=== PATIENT | male | born 1980 | race Caucasian/White ===

== ENCOUNTER 2017-11-10 01:10 | Emergency (ER) | payer BC ==
[2017-11-10] MEDS ORDERED: Ondansetron HCl/PF 4 MG/2 ML Vial ONE (01:28)
[2017-11-10] MEDS ORDERED: Pantoprazole 40 MG VIAL ONE (01:33)
[2017-11-10 01:49] LABS: #Basophils 0.1 thou/uL (0.0-0.2); #Eosinphils 0.1 thou/uL (0.0-0.7); #Lymphocytes 0.7 thou/uL (1.20-3.40); #Monocytes 0.5 thou/uL (0.11-0.59); #Neutrophils 9.1 thou/uL (1.40-6.50); %Basophils 0.5 % (0.0-1.0); %Eosinophils 1.4 % (0.0-10.0); %Lymphocytes 6.3 % (21.0-51.0); %Monocytes 4.7 % (0.0-10.0); %Neutrophils 87.1 % (42.0-75.0); Hemoglobin 15.6 g/dL (14.0-18.0); Mean Corpuscular HGB CONC 34.5 g/dL (32.0-36.0); Mean Corpuscular Hemoglobin 28.1 pg (27.0-31.0); Mean Corpuscular Volume 81.3 fl (80.0-94.0); Mean Platelet Volume 7.1 fL (7.4-10.4); Platelet Count 226 thou/uL (130-400); RBC Distribution Width 11.8 % (11.5-14.5); Red Blood Cell (RBC) Count 5.57 mill/uL (4.70-6.10); White Blood Cell (WBC) Count 10.4 thou/uL (4.8-10.8)
[2017-11-10 01:56] LABS: ALT (SGPT) 42 U/L (8-55); AST (SGOT) 22 U/L (5-34); Albumin 4.6 g/dL (3.5-5.0); Alkaline Phosphatase 85 U/L (40-150); Anion Gap 19 mmol/L (10-20); BUN (Urea Nitrogen) 21 mg/dL (8.9-20.6); Bilirubin, Total 1.1 mg/dL (0.2-1.2); Calc. Creatinine Clearance 0 mL/min (70-130); Calcium 9.7 mg/dL (7.8-10.44); Carbon Dioxide 21 mmol/L (22-29); Chloride 103 mmol/L (98-107); Estimated GFR-MDRD 72; Globulin 3.4 g/dL (2.4-3.5); Glucose 132 mg/dL (70-105); Lipase 19 U/L (8-78); Potassium 4.7 mmol/L (3.5-5.1); Sodium 138 mmol/L (136-145)
== END 2017-11-10 03:28 | disposition home or self-care (01) ==
LOC: SCSER 01:10
DX: K52.9 Noninfective gastroenteritis and colitis, unspecified (principal); H61.22 Impacted cerumen, left ear; E03.9 Hypothyroidism, unspecified; J45.909 Unspecified asthma, uncomplicated; Z79.899 Other long term (current) drug therapy
CPT/HCPCS: 80053; 83690; 85025; 96361; 96374; 96375; C9113; J2405

== ENCOUNTER 2020-08-10 06:42 | Inpatient (IN) | payer OTHER ==
[2020-08-10] MEDS ORDERED: Fentanyl 100 MCG/2 ML VIAL ONE ×2 (07:34→11:06)
[2020-08-10] MEDS ORDERED: Midazolam HCl 2 mg/2 ml Vial ONE (07:34)
[2020-08-10] MEDS ORDERED: VANCOMYCIN 2 GRAM/400 ML BAG 2 GM in Premix Bag 1 BAG IVPB SCH (08:00)
[2020-08-10] MEDS ORDERED: CEFAZOLIN 2 GM in Premix Bag 1 BAG IVPB SCH (08:00)
[2020-08-10] MEDS ORDERED: Tranexamic Acid 1,000 MG/10 ML VIAL ONE (08:02)
[2020-08-10] MEDS ORDERED: Sodium Chloride 0.9% 100 ML ONE (08:16)
[2020-08-10] MEDS ORDERED: Promethazine HCl 25 MG SUPP PR PRN (08:30)
[2020-08-10] MEDS ORDERED: diphenhydrAMINE 50 MG/ML VIAL IM PRN (08:30)
[2020-08-10] MEDS ORDERED: traMADol HCl 50 MG TAB PO PRN ×3 (08:30→08:44)
[2020-08-10] MEDS ORDERED: diphenhydrAMINE 25 MG CAP PO PRN ×2 (08:30→08:42)
[2020-08-10] MEDS ORDERED: Naloxone HCl 0.4 mg/ml Vial IV PRN (08:30)
[2020-08-10] MEDS ORDERED: Naloxone HCl 0.4 mg/ml Vial IVP PRN (08:30)
[2020-08-10] MEDS ORDERED: Bupivacaine 0.25% 10 ML VIAL EPIDURAL PRN (08:30)
[2020-08-10] MEDS ORDERED: HYDROcodone/Acetaminophen 5/325 mg Tablet PO PRN (08:30)
[2020-08-10] MEDS ORDERED: Ondansetron PF 4 MG/2 ML Vial IVP PRN (08:30)
[2020-08-10] MEDS ORDERED: Zolpidem Tartrate 5 MG TAB PO PRN ×2 (08:30→08:42)
[2020-08-10] MEDS ORDERED: Promethazine HCl 25 MG/ML VIAL IM PRN ×3 (08:30→11:03)
[2020-08-10] MEDS ORDERED: Hydrocerin (Eucerin) Cream 120 gm Jar TOP PRN (08:30)
[2020-08-10] MEDS ORDERED: diphenhydrAMINE 50 MG/ML VIAL IVP PRN (08:30)
[2020-08-10] MEDS ORDERED: Acetaminophen 500 MG TAB PO PRN (08:33)
[2020-08-10] MEDS ORDERED: HYDROcodone/Acetaminophen 10/325 mg Tablet PO PRN ×2 (08:42)
[2020-08-10] MEDS ORDERED: Acetaminophen 325 MG TAB PO PRN (08:42)
[2020-08-10] MEDS ORDERED: Cyclobenzaprine 10 MG TAB PO PRN (08:44)
[2020-08-10] MEDS ORDERED: Tamsulosin HCl 0.4 MG CAP PO PRN (08:44)
[2020-08-10] MEDS ORDERED: Ropivacaine 0.2% HCl/PF 20 ML ONE (09:06)
[2020-08-10] MEDS ORDERED: Lidocaine 1% PF 5 ML VIAL ONE (09:56)
[2020-08-10] MEDS ORDERED: PROPOFOL 200 MG/20 ML VIAL ONE (09:56)
[2020-08-10] MEDS ORDERED: Ondansetron PF 4 MG/2 ML Vial ONE (09:56)
[2020-08-10] MEDS ORDERED: Rocuronium Bromide 10 MG/ML (10ML VIAL) ONE (09:56)
[2020-08-10] MEDS ORDERED: Lidocaine 1.5% w/Epi 1:200K 30 ML VIAL (Epid Use) ONE (09:57)
[2020-08-10] MEDS ORDERED: Ondansetron HCl/PF 4 MG/2 ML Vial IVP PRN (11:03)
[2020-08-10] MEDS ORDERED: Promethazine HCl 25 MG/ML VIAL SLOW IVP PRN (11:03)
[2020-08-10] MEDS ORDERED: Ketorolac Tromethamine 30 MG/ML VIAL ONE (11:18)
--- NOTE | 2020-08-10 11:18 | OP ---
DATE OF PROCEDURE: 08/10/2020 TITLE OF PROCEDURE: Left total hip arthroplasty using a Rayray Accolade II stem with a -5, 36 head, a 5 stem, and the cup was a Tritanium size 52 DESCRIPTION OF PROCEDURE: After informed consent was obtained in the preoperative holding area, the patient was taken to the operative suite where general anesthesia was induced. The patient was then positioned in the lateral decubitus position. The hip was then prepped and draped in usual sterile fashion. The patient received preoperative antibiotics. Prior to incision, time-out was called and all members of the surgical team agreed upon site, surgeon, and patient. After this, a longitudinal incision was made directly over the trochanter, noted by palpation extending 2 fingerbreadths above and below the trochanter. The deeper subcutaneous layer was undermined with Bovie electrocautery. The iliotibial band was encountered and incised sharply and the plane below this was developed bluntly. A Charnley retractor was placed to hold this opened. The lateral aspect of the trochanter and the abductor muscles were encountered and then reflected anteriorly off the trochanter using Bovie electrocautery. Once this was completed, the anterior capsule was then encountered and identified and copious capsulotomy was carried out, exposing the femoral neck and head. Dislocation maneuver was then performed and an in situ provisional neck cut was then made using the oscillating saw. Attention was then turned to acetabular preparation and sequential reaming was carried out up to the appropriate diameter. A trial was then malleted into place with good firm resistance and no pullout. The permanent acetabular shell was then malleted squarely into place, as was the appropriate liner. Once completed, the wound was copiously irrigated and attention was then turned to femoral preparation. Flexion and external rotation were performed of the exposed thigh and femoral elevators were then placed at the proximal aspect of the wound. Canal finder was used to establish the length of the canal and sequential reaming was carried out, followed by broaching. Once the appropriate stability was established with the trial broaches with flexion, extension and rotational stability, we did trial with neutral and 2 mm offset incremental necks. Once the appropriate size was decided upon, with good stability noted with flexion, extension, internal and external rotation and shuck being negative, we removed the femoral trial broach and malletted into place the permanent prosthesis with good firm fit, which was also stable to rotation. Again, the hip felt very stable to flexion, extension, internal and external rotation. Leg lengths appeared near anatomic clinically and we were quite happy with prosthesis placement. Copious irrigation was then carried out through the entirety of the wound. Primary closure of the abductors was accomplished with interrupted #2 Vicryl [id number] stitches and the IT band was then closed with interrupted #2 Vicryl, oversewn with a #2 running barbed Quill stitch. Subcutaneous fascia was closed with running barbed Quill stitch and a subcuticular Monocryl barbed Quill stitch was used for skin closure and augmented with skin cement. A sterile dressing was applied. The procedure was terminated without any complication. All counts were correct. The patient was awakened in the operative suite and taken to the recovery room in stable condition. The health assistant/co-surgeon was present through the entire procedure and was responsible for providing exposure, tissue retraction and any necessary limb or tissue manipulation required to obtain necessary reduction or hardware placement. The health assistant/co-surgeon also provided bleeding control, tissue closure, and suturing in conjunction with the primary surgeon. Job ID: [id number]
[2020-08-10] MEDS: Ketorolac Tromethamine 30 MG/ML VIAL IVP SCH ×3 (11:20→23:28)
--- NOTE | 2020-08-10 11:44 | RAD ---
Exam:Left hip 2 HISTORY: Postoperative exam COMPARISON: None FINDINGS: Uncomplicated left hip arthroplasty IMPRESSION: Uncomplicated left hip arthroplasty.
[2020-08-10] MEDS ORDERED: diphenhydrAMINE 50 MG/ML VIAL ONE (12:22)
[2020-08-10] MEDS ORDERED: Albuterol Sulfate 2.5 mg/3 ml Neb NEB PRN (12:23)
[2020-08-10] MEDS ORDERED: valACYclovir 500 MG TAB PO PRN (12:24)
[2020-08-10] MEDS: Cholecalciferol 1,000 UNITS (25 MCG) TAB PO SCH (15:13)
[2020-08-10] MEDS: Sodium Chloride 0.9% 1,000 ML IV SCH ×2 (16:44→16:47)
[2020-08-10] MEDS: CEFAZOLIN 2 GM in Premix Bag 1 BAG IVPB SCH ×2 (16:44→23:27)
[2020-08-10] MEDS: Aspirin 81 mg Enteric Coated Tablet PO SCH (20:47)
[2020-08-10] MEDS: rOPINIRole HCl 1 MG TAB PO SCH (21:31)
[2020-08-10] MEDS: Betamethasone 0.1% Cream 15 GM TUBE TOP SCH (21:39)
[2020-08-10] MEDS: fentaNYL Citrate/PF 500 MCG, Bupivacaine 10 ML in Sodium Chloride 0.9% 80 ML EPIDURAL SCH (23:27)
[2020-08-11] MEDS: Sodium Chloride 0.9% 1,000 ML IV SCH ×2 (05:27→14:40)
[2020-08-11 05:59] LABS: Hemoglobin 12.2 g/dL (14.0-18.0); Mean Corpuscular HGB CONC 33.8 g/dL (32.0-36.0); Mean Corpuscular Hemoglobin 29.1 pg (27.0-31.0); Mean Corpuscular Volume 86.3 fL (78.0-98.0); Mean Platelet Volume 7.2 fL (7.4-10.4); Platelet Count 222 thou/uL (130-400); RBC Distribution Width 11.8 % (11.5-14.5); White Blood Cell (WBC) Count 10.3 thou/uL (4.8-10.8)
[2020-08-11] MEDS: Levothyroxine 175 MCG TAB PO SCH (06:07)
[2020-08-11] MEDS: Ketorolac Tromethamine 30 MG/ML VIAL IVP SCH ×3 (06:32→17:39)
[2020-08-11] MEDS: HYDROcodone/Acetaminophen 5/325 mg Tablet PO PRN ×2 (06:32→19:09)
[2020-08-11] MEDS: Dextroamphetamine/Amphetamine [Adderall Xr 20 Mg Capsule] PO SCH (08:38)
[2020-08-11] MEDS: Aspirin 81 mg Enteric Coated Tablet PO SCH ×2 (08:38→21:30)
[2020-08-11] MEDS: Ferrous Gluconate 324 MG TAB PO SCH ×2 (08:38→21:30)
[2020-08-11] MEDS: Multivitamin W/ Minerals 1 TAB PO SCH (08:38)
[2020-08-11] MEDS: Senokot S 8.6-50 MG TAB PO SCH ×2 (08:38→21:30)
[2020-08-11] MEDS: Cholecalciferol 1,000 UNITS (25 MCG) TAB PO SCH (08:38)
[2020-08-11] MEDS: Loratadine 10 MG TAB PO SCH (08:38)
[2020-08-11] MEDS: Betamethasone 0.1% Cream 15 GM TUBE TOP SCH ×2 (08:40→21:31)
[2020-08-11] MEDS: Ondansetron PF 4 MG/2 ML Vial IVP PRN (14:05)
[2020-08-11] MEDS: BECLOMETHASONE DIPROPIONATE INH SCH (15:33)
[2020-08-11] MEDS: fentaNYL Citrate/PF 500 MCG, Bupivacaine 10 ML in Sodium Chloride 0.9% 80 ML EPIDURAL SCH (15:33)
[2020-08-11] MEDS: rOPINIRole HCl 1 MG TAB PO SCH (21:31)
[2020-08-12] MEDS: Ketorolac Tromethamine 30 MG/ML VIAL IVP SCH ×2 (00:21→04:14)
[2020-08-12] MEDS: Sodium Chloride 0.9% 1,000 ML IV SCH ×3 (01:28→21:07)
[2020-08-12] MEDS: HYDROcodone/Acetaminophen 5/325 mg Tablet PO PRN ×2 (04:13→08:38)
[2020-08-12] MEDS: fentaNYL Citrate/PF 500 MCG, Bupivacaine 10 ML in Sodium Chloride 0.9% 80 ML EPIDURAL SCH (04:14)
[2020-08-12] MEDS: Levothyroxine 175 MCG TAB PO SCH (04:15)
[2020-08-12] MEDS: Aspirin 81 mg Enteric Coated Tablet PO SCH ×2 (08:39→21:05)
[2020-08-12] MEDS: Cholecalciferol 1,000 UNITS (25 MCG) TAB PO SCH (08:39)
[2020-08-12] MEDS: Multivitamin W/ Minerals 1 TAB PO SCH (08:39)
[2020-08-12] MEDS: Ferrous Gluconate 324 MG TAB PO SCH ×2 (08:39→21:05)
[2020-08-12] MEDS: Loratadine 10 MG TAB PO SCH (08:39)
[2020-08-12] MEDS: Betamethasone 0.1% Cream 15 GM TUBE TOP SCH ×2 (08:40→21:12)
[2020-08-12] MEDS: Senokot S 8.6-50 MG TAB PO SCH ×2 (08:46→21:04)
[2020-08-12] MEDS: BECLOMETHASONE DIPROPIONATE INH SCH ×2 (08:49→21:05)
[2020-08-12] MEDS: Dextroamphetamine/Amphetamine [Adderall Xr 20 Mg Capsule] PO SCH (09:58)
[2020-08-12] MEDS ORDERED: HYDROcodone/Acetaminophen 10/325 mg Tablet PO PRN (11:05)
[2020-08-12] MEDS: HYDROcodone/Acetaminophen 10/325 mg Tablet PO PRN ×2 (14:02→21:07)
[2020-08-12] MEDS: Ondansetron PF 4 MG/2 ML Vial IVP PRN (14:54)
[2020-08-12] MEDS ORDERED: Ondansetron ODT 4 MG TAB PO PRN (17:23)
[2020-08-12 19:41] VITALS: BMI 37.2
[2020-08-12] MEDS: rOPINIRole HCl 1 MG TAB PO SCH (21:04)
[2020-08-13] MEDS: Levothyroxine 175 MCG TAB PO SCH (06:14)
[2020-08-13] MEDS: BECLOMETHASONE DIPROPIONATE INH SCH (06:15)
[2020-08-13] MEDS: HYDROcodone/Acetaminophen 10/325 mg Tablet PO PRN ×2 (08:45→13:37)
[2020-08-13] MEDS: Cholecalciferol 1,000 UNITS (25 MCG) TAB PO SCH (08:45)
[2020-08-13] MEDS: Multivitamin W/ Minerals 1 TAB PO SCH (08:45)
[2020-08-13] MEDS: Ferrous Gluconate 324 MG TAB PO SCH (08:46)
[2020-08-13] MEDS: Aspirin 81 mg Enteric Coated Tablet PO SCH (08:47)
[2020-08-13] MEDS: Loratadine 10 MG TAB PO SCH (08:47)
[2020-08-13] MEDS: Senokot S 8.6-50 MG TAB PO SCH (08:47)
[2020-08-13] MEDS: Dextroamphetamine/Amphetamine [Adderall Xr 20 Mg Capsule] PO SCH (10:38)
[2020-08-13] MEDS: Betamethasone 0.1% Cream 15 GM TUBE TOP SCH (10:39)
[2020-08-13] MEDS: Sodium Chloride 0.9% 1,000 ML IV SCH (13:21)
[2020-08-13 15:46] VITALS: BP 128/78; TEMP 98.2
== END 2020-08-13 16:13 | disposition home or self-care (01) | DRG 470 ==
LOC: SDC 06:42 → SURG B 08:43
PROVIDERS: ADMIT Orthopaedic Surgery; ATTEND Orthopaedic Surgery
PROC: 0SRB0J9 Replacement of Left Hip Joint with Synthetic Substitute, Cemented, Open Approach (ICD-10-PCS; principal; 2020-08-10)
DX: M16.12 Unilateral primary osteoarthritis, left hip (principal); F17.290 Nicotine dependence, other tobacco product, uncomplicated; J45.909 Unspecified asthma, uncomplicated; E03.9 Hypothyroidism, unspecified; Z79.899 Other long term (current) drug therapy; Z79.890 Hormone replacement therapy
CPT/HCPCS: 36415; 85027; J0690; J1200; J1885; J2001; J2250; J2405; J2704; J2795; J3010; J3370; J3490; Q0162

== ENCOUNTER 2021-12-30 11:16 | Outpatient (CLI) | payer BC | END 2021-12-30 11:17 | disposition home or self-care (01) | LOC: SCSRAD 11:16 | PROVIDERS: ATTEND Family Medicine | DX: S69.92XD Unspecified injury of left wrist, hand and finger(s), subsequent encounter (principal) ==

== ENCOUNTER 2022-06-23 14:18 | Outpatient (CLI) | payer BC | END 2022-06-23 14:19 | disposition home or self-care (01) | LOC: TBSIIMAG 14:18 | PROVIDERS: ATTEND Orthopaedic Surgery | DX: M75.101 Unspecified rotator cuff tear or rupture of right shoulder, not specified as traumatic (principal) ==

== ENCOUNTER → 2022-10-10 | Outpatient (CLI) | payer BC | LOC: SLEEPLAB 17:30 | PROVIDERS: ATTEND Family Medicine | DX: G47.33 Obstructive sleep apnea (adult) (pediatric) (principal); R53.83 Other fatigue; R40.0 Somnolence; E66.9 Obesity, unspecified; R06.83 Snoring; Z68.41 Body mass index [BMI] 40.0-44.9, adult | CPT/HCPCS: 95800 ==